=== PATIENT | female | born 1965 | race Hispanic/Latino ===

== ENCOUNTER 2016-11-23 15:15 | Inpatient (IN) | payer BC ==
--- NOTE | 2016-11-23 15:41 | C.PDOC ---
History Of Present Illness 51 y/o F presents with feelings of depression. Patient denies SI/HI or hallucinations. She states she is feeling sad and upset. at bedside states patient went to work today, but he thinks she is not fit to be at work currently, and he is adamant that she can not lose her job over this as it is illegal. She denies any somatic complaints. Denies fever, chest pain, or vomiting. Time Seen by Provider: 11/23/16 15:33 Chief Complaint (Nursing): Psychiatric Evaluation Past Medical History Vital Signs: Last Vital Signs Temp 98.9 F 11/23/16 20:43 Pulse 77 11/23/16 20:43 Resp 20 11/23/16 20:43 BP 148/74 11/23/16 20:43 Pulse Ox 98 11/23/16 20:43 - Medical History PMH: Back Problems, Bipolar Disorder, HTN, Hypercholesterolemia, Hyperthyroidism , Hypothyroidism Family History: States: Unknown Family Hx - Social History Hx Tobacco Use: No Hx Alcohol Use: No Hx Substance Use: No - Immunization History Hx Tetanus Toxoid Vaccination: Yes Hx Influenza Vaccination: Yes Hx Pneumococcal Vaccination: Yes Review Of Systems Except As Marked, All Systems Reviewed And Found Negative. Constitutional: Negative for: Fever Cardiovascular: Negative for: Chest Pain Physical Exam - Physical Exam Additional Physical Exam Comments: Constitutional: No acute distress. Head: Normocephalic. Atraumatic. Eyes: PERRL. EOMI. ENT: Moist mucous membranes. Neck: Supple. Cardiovascular: Regular rate. Radial pulses 2+ bilaterally. Chest: No tenderness. Respiratory: Clear to auscultation bilaterally. GI: Soft. Nontender. Nondistended. Back: No CVA tenderness. Musculoskeletal: No tenderness or swelling of extremities. Skin: No rash. Neurologic: Alert, no focal deficit. CN II-XII intact. Sensation to light touch intact bilaterally. Motor 5/5 x 4. FTN, HTS normal. Steady gait. ED Course And Treatment - Laboratory Results Result Diagrams: 11/23/16 16:12 11/23/16 16:01 O2 Sat by Pulse Oximetry: 98 Medical Decision Making Medical Decision Making: Medically clear for psychiatry. CXR no acute disease. EKG Sinus rhythm, narrow QRS, regular rate, no ST elevations. Dr. Eli consulted for psychiatry, concerned for elevated lithium level, recommends medical admission and he will consult on patient. Dr. Tao accepts admission to medical service. Disposition Discussed With : Roberto Eli Doctor Will See Patient In The: Hospital - Disposition Disposition: HOSPITALIZED Disposition Time: 18:30 Condition: FAIR - Clinical Impression Clinical Impression: [place] toxicity
[2016-11-23 16:07] LABS: BASO % 0.2 % (0.0-2.0); EOS # 0.1 K/uL (0.0-0.7); EOS % 0.6 % (0.0-4.0); HEMATOCRIT 41.7 % (34.0-47.0); LYMPH # 2.1 K/uL (1.0-4.3); LYMPH % 11.4 % (20.0-40.0); MEAN CORPUSCULAR HEMOGLOBIN 29.7 pg (27.0-31.0); MEAN PLATELET VOLUME 8.5 fL (7.2-11.7); MONO # 1.1 K/uL (0.0-0.8); MONO % 6.2 % (0.0-10.0); RED CELL DISTRIBUTION WIDTH 13.8 % (11.5-14.5)
[2016-11-23 16:13] LABS: MEAN CELL VOLUME 87.2 fL (81.0-99.0); WHITE BLOOD COUNT 18.1 K/uL (4.8-10.8)
[2016-11-23 16:19] LABS: CHLORIDE 100 mmol/L (98-107); RBC URINE 2 /hpf (0-3); URINE BACTERIA RARE (<OCC); URINE BILIRUBIN NEGATIVE (NEGATIVE); URINE BLOOD NEGATIVE (NEGATIVE); URINE COLOR Yellow (YELLOW); URINE GLUCOSE (UA) NORMAL (Normal); URINE KETONE NEGATIVE (NEGATIVE); URINE LEUKOCYTE ESTERASE NEG Leu/uL (Negative); URINE PROTEIN NEGATIVE (NEGATIVE); URINE UROBILINOGEN NORMAL mg/dL (0.2-1.0); WBC URINE 1 /hpf (0-5)
[2016-11-23 16:20] LABS: POTASSIUM 3.5 mmol/L (3.6-5.2); SODIUM 134 mmol/L (132-148)
[2016-11-23 16:22] LABS: ALB/GLOB RATIO 1.5 (1.0-2.1); ALKALINE PHOSPHATASE 50 U/L (38-126); ALT/SGPT 38 U/L (9-52); AST/SGOT 24 U/L (14-36); BILIRUBIN,TOTAL 0.6 mg/dL (0.2-1.3); BLOOD UREA NITROGEN 12 mg/dL (7-17); CARBON DIOXIDE 23 mmol/L (22-30); GFR AFRICAN-AMERICAN > 60; GLUCOSE,RANDOM 107 mg/dL (65-105); TOTAL PROTEIN 7.3 g/dL (6.3-8.3)
[2016-11-23 16:23] LABS: ALCOHOL SERUM < 10 mg/dl (0-10); CALCIUM 9.5 mg/dl (8.6-10.4)
--- NOTE | 2016-11-23 16:42 | RAD ---
HISTORY: Leukocytosis. COMPARISON: Comparison made with prior chest radiograph 03/27/2012 TECHNIQUE: Chest PA and lateral FINDINGS: LUNGS: No active pulmonary disease. PLEURA: No significant pleural effusion identified. No pneumothorax apparent. CARDIOVASCULAR: Normal. Heart appears upper limits of normal. OSSEOUS STRUCTURES: Mild multilevel degenerative spondylosis of the thoracic spine VISUALIZED UPPER ABDOMEN: Normal. OTHER FINDINGS: None. IMPRESSION: No active disease.
[2016-11-23] MEDS ORDERED: Sodium Chloride 0.9% 1,000 ML IV STA (18:19)
[2016-11-23] MEDS ORDERED: Potassium Chloride 20 mEq ER Tab PO ONE (21:43)
[2016-11-23] MEDS: Sodium Chloride 0.9% 1,000 ML IV SCH (21:45)
[2016-11-24] MEDS: Sodium Chloride 0.9% 1,000 ML IV SCH ×2 (06:01→17:20)
[2016-11-24 07:53] LABS: BASO # 0.1 K/uL (0.0-0.2); BASO % 0.4 % (0.0-2.0); EOS # 0.1 K/uL (0.0-0.7); EOS % 1.1 % (0.0-4.0); HEMATOCRIT 44.5 % (34.0-47.0); LYMPH # 1.5 K/uL (1.0-4.3); MEAN CELL VOLUME 88.4 fL (81.0-99.0); MEAN CORPUSCULAR HEMOGLOBIN 29.2 pg (27.0-31.0); MEAN CORPUSCULAR HGB CONC 33.1 g/dL (33.0-37.0); MEAN PLATELET VOLUME 9.1 fL (7.2-11.7); MONO # 0.7 K/uL (0.0-0.8); MONO % 5.7 % (0.0-10.0); RED CELL DISTRIBUTION WIDTH 13.9 % (11.5-14.5); WHITE BLOOD COUNT 12.5 K/uL (4.8-10.8)
[2016-11-24 07:57] LABS: CHLORIDE 105 mmol/L (98-107)
[2016-11-24 07:58] LABS: SODIUM 138 mmol/L (132-148)
[2016-11-24 08:00] LABS: ALB/GLOB RATIO 1.4 (1.0-2.1); CARBON DIOXIDE 22 mmol/L (22-30); CHOLESTEROL 137 mg/dL (0-199); GFR AFRICAN-AMERICAN > 60; TOTAL PROTEIN 7.7 g/dL (6.3-8.3)
[2016-11-24 08:01] LABS: ALKALINE PHOSPHATASE 59 U/L (38-126); AST/SGOT 21 U/L (14-36); BILIRUBIN,TOTAL 0.7 mg/dL (0.2-1.3); BLOOD UREA NITROGEN 7 mg/dL (7-17); GLUCOSE,RANDOM 91 mg/dL (65-105)
[2016-11-24 08:02] LABS: ALT/SGPT 35 U/L (9-52); CALCIUM 9.4 mg/dl (8.6-10.4)
[2016-11-24 08:32] LABS: THYROID STIMULATING HORMONE 1.82 mIU/L (0.46-4.68)
[2016-11-24] MEDS ORDERED: Pneumococcal 23-Valent Vaccine IM ONE (10:00)
--- NOTE | 2016-11-24 10:42 | CP.PCM.PN ---
Subjective - Date & Time of Evaluation Date of Evaluation: 11/24/16 Time of Evaluation: 10:20 - Subjective Subjective: Patient is seen and examined at bedside. #[id number] Objective - Vital Signs/Intake and Output Vital Signs (last 24 hours): Temp Pulse Resp BP Pulse Ox 98.2 F 68 20 147/84 99 11/24/16 08:16 11/24/16 08:16 11/24/16 08:16 11/24/16 08:16 11/24/16 08:16 Intake and Output: 11/24/16 11/24/16 06:59 18:59 Intake Total 1415 Balance 1415 - Medications Medications: Current Medications Sodium Chloride (Sodium Chloride 0.9%) 1,000 mls @ 100 mls/hr IV .Q10H BRAXTON Last Admin: 11/24/16 06:01 Dose: 100 mls/hr - Labs Labs: 11/24/16 07:41 11/24/16 07:41
--- NOTE | 2016-11-24 11:00 | PCM.PSYCH ---
Initial Psychiatric Evaluation - Initial Psychiatric Evaluation Type of Admission: Voluntary Legal Status: Capacity Chief Complaint (in patient's own words): "I am not well" History of Present Illness and Precipitating Events: The pt is seen, chart reviewed and case discussed She is a 51 y/o WF, with 2 children, aged 21 and 27 y/o. 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 Per records, her has alcohol problem and some relational problems, plus other issues and she felt more depressed and anxious lately. On top of that he rLi level came high, 1.2 and she was sent to ED. Recently she was sent home from work b/c she was "acting well" The pt indeed looks very perplexed, very anxious, has odd involuntary movements in left arm and leg, "no sleep", has manic and depressive sxs but denies SI. However, she is also vague about SI, but yet contracted for safety She was on [place] 450 mg two tabs twice a day (needs confirmation as her sons reported that she had been non-compliant in the past) She also used seroquel She is a poor historian in general Past psych hx: Several admissions "years ago" No sandeep attempt Family psych hx: Mo had bipolar d/o Medical hx: Denies but had thyroid problems (likely due to Li, but TSH is normal today) Current Medications: Active Medications Generic Name Dose Route Start Last Admin Trade Name Freq PRN Reason Stop Dose Admin Sodium Chloride 1,000 mls @ 100 mls/hr 11/23/16 20:45 11/24/16 06:01 Sodium Chloride 0.9% IV 100 mls/hr .Q10H B[place] Administration Past Psychiatric History - Past Psychiatric History Previous Treatment History: Inpatient Pertinent Medical Hx (Current Medical&Sleep Prob, Allergies): Allergies Allergy/AdvReac Type Severity Reaction Status Date / Time No Known Allergies Allergy Unverified 04/05/13 23:32 Cogentin PO BID 11/23/16 [place] Carbonate ER Tab [[place] Carbonate] 450 mg PO BID 11/23/16 SEROquel PO HS 11/23/16 Review of Systems - Psychiatric Psychiatric: Abnormal Sleep Pattern, Anhedonia, Anxiety, Behavioral Changes, Change in Appetite, Confusion, Depression, Difficulty Concentrating, Irritability, Memory Loss, Mood Swings, Panic Attacks, Paranoia, Suicidal Ideation (no plan or intention). absent: Hallucinations, Homicidal Ideation Mental Status Examination - Personal Presentation Personal Presentation: Looks older than stated age (oddly related, perplexed, unkempt) - Affect Affect: Constricted - Motor Activity Motor Activity: Other (anxious, fidgety, has involuntary movements) - Reliability in Providing Information Reliability in Providing Information: Fair - Speech Speech: Tangential - Mood Mood: Depressed, Anxious - Formal Thought Process Formal Thought Process: Loosening of associations - Cognitive Functions Orientation: Person, Place, Situation, Time Sensorium: Alert Attention/Concentration: Easily distracted Abstract Thinking: [place] Estimate of Intelligence: Average Judgement: Intact, as evidence by: Insight regarding need for hospitalization Memory: Recent intact, as evidence by: Ability to recall events of the day, Remote impaired as evidenced by: Inability to recall sig life events - Risk Risk: Diminished functioning - Strength & Assets Inventory Strength & Assets Inventory: Family support, Employment history, Cooperative - Limitations Limitations: Other DSM 5 DX - DSM 5 DSM 5 Diagnosis: Bipolar I disorder, mixed episode, severe - Recommended/Plan of Treatment Treatment Recommendations and Plan of Treatment: Hold [place] until collateral info from her outpt psychiatrist, Dr. Renteria and her Seroquel 100 mg HS ativan 0.5 mg tid for anxiety Inderal 10 mg tid for akathisia like bhv Neuro consult or referral if needed Attend groups and activities Individual therapy Psychoeducation and support Encourage compliance with meds and after care Refer to outpatient program Teach healthy lifestyle methods, i.e. diet, exercise, meditation 33 min Projected ELOS: 4-5 days with time off from work Prognosis: Good w treatment Discharge Plan and Discharge Criteria: No severe mood d/o sxs Refer back to outpt psych
--- NOTE | 2016-11-24 11:02 | CP.PCM.PCO ---
Physician Communication Note - Physician Communication Note Physician Communication Note: ED discussed the case with Dr. Fairbanks, not with the marketing writer.
--- NOTE | 2016-11-24 11:54 | CARD ---
APPROVED REPORT EKG Measurement Heart [id number] CT 162P50 [id number] <Conclusion> Normal sinus rhythm Incomplete right bundle branch block Nonspecific ST abnormality Abnormal ECG
--- NOTE | 2016-11-24 14:55 | HP ---
CHIEF COMPLAINT: The patient was sent from psychiatrist office for worsening symptoms of anxiety and depression. HISTORY OF PRESENT ILLNESS: The patient is a 51-year-old female with past medical history of hyperlipidemia, bipolar disorder, who had been following up with the psychiatrist. The psychiatrist suggested her lithium. I increased from 450 mg once a day to 450 mg twice a day last Sunday and yesterday, her lithium level was at 1.2, and the patient was referred to ED for further evaluation and management. The patient is being admitted to medical floor for high normal lithium level of 1.2 and slightly elevated WBC count. When I examined the patient, she denies any headache, dizziness. Denies any chest pain, shortness of breath, or wheezing. Denies any nausea, vomiting, abdominal pain, diarrhea, or constipation. Denies any urinary complaints. Denies any leg pains or leg cramps. Denies any other neurologic symptoms, but complaining of feeling anxious, requesting for some medication. Denies any suicidal or homicidal ideation. Denies any hallucinations. PAST MEDICAL HISTORY: As described; hyperlipidemia, bipolar disorder. PAST SURGICAL HISTORY: Tubal ligation, 22 years ago. FAMILY HISTORY: Father from lung CA. Mother from sepsis. PERSONAL HISTORY: She is , living with her , having 3 children. 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. SOCIAL HISTORY: Denies smoking, alcohol, or drug abuse. ALLERGIES: NO KNOWN DRUG ALLERGIES. MEDICATIONS: Include lithium 450 mg p.o. b.i.d., Seroquel, Cogentin, and Lipitor. REVIEW OF SYSTEMS: As described in history of present illness. All other systems reviewed and were found to be negative. PHYSICAL EXAMINATION: GENERAL: Middle-aged female, lying in bed, in no acute distress. VITAL SIGNS: Blood pressure 147/84, pulse 68, respirations 20, temperature 98.2 degree Fahrenheit, O2 sats 99% on room air. HEENT: Pupils are equal, round and reacting to light and accommodation. Extraocular muscles intact. No icterus. No pallor. No oral thrush. No pharyngeal congestion. No nasal congestion. NECK: Supple. No JVD. No thyromegaly. CHEST: Moving equally bilaterally on respiration. LUNGS: Bilateral vesicular breath sounds. No wheezing. No rhonchi. CARDIOVASCULAR: S1 and S2 present, regular. ABDOMEN: Soft and nontender. Bowel sounds are present. No guarding. No rigidity. No rebound tenderness noted. CENTRAL NERVOUS SYSTEM: Alert, awake, and oriented x3. No focal deficits noted. EXTREMITIES: No edema. Palpable peripheral pulses. LABORATORY DATA: Labs done from ED: WBC 18.1, hemoglobin 14.2, hematocrit 41.7, platelets 295. Sodium 134, potassium 3.5, chloride 100, bicarb 23, BUN 12, creatinine 0.7, glucose 107, calcium 9.5, total bilirubin 0.6, AST 24, ALT 38, alkaline phosphatase 50, total protein 7.3, albumin 4.4. UA negative. Urine drug screen negative. [place] level 1.2. Alcohol less than 10. Chest x-ray, negative for any infiltrate. EKG from 11/23 shows normal sinus rhythm at 87 beats per minute and complete right bundle branch block. ASSESSMENT: A middle-aged female with history of hyperlipidemia, bipolar disorder, on multiple medications for a long time with worsening symptoms recently, and her lithium dosage being adjusted from 450 mg once a day to twice a day with slightly increased lithium level in upper limit as normal with the patient's worsening symptoms of depression and anxiety. The patient is being admitted for further management. Because of the high normal lithium level, the patient is being admitted to medical floor. 1. High normal lithium level, probably secondary to sudden increase in her dose. 2. Leukocytosis, questionable etiology. No evidence of sepsis or source of infection. 3. Hyperlipidemia. 4. History of bipolar disorder with worsening symptoms. PLAN: The patient is being admitted to the floor. We will monitor lithium level. We will repeat lithium level in the morning, but the patient is on one-to-one observation, Psychiatric evaluation, hold lithium for now. Other psychiatric medications as per Psychiatry. Check lipid level. Check TSH level. Monitor blood pressure. Repeat EKG. If lithium level comes back to within the normal range, the patient may be medically cleared and may be transferred to psych floor if the patient agrees. We will follow up with Psychiatry. Jean-Paul Tao MD
[2016-11-24] MEDS ORDERED: Potassium Chloride 20 mEq ER Tab PO ONE (20:41)
[2016-11-24] MEDS ORDERED: Lithium Carbonate ER Tab 450 MG PO SCH (22:00)
--- NOTE | 2016-11-25 14:13 | CARD ---
APPROVED REPORT EKG Measurement Heart [id number] NE 166P62 [id number] <Conclusion> Normal sinus rhythm with sinus arrhythmia Incomplete right bundle branch block Borderline ECG
--- NOTE | 2016-11-25 18:51 | PCM.PYCHPN ---
Psychiatric Progress Note - Psychiatric Progress Note Patient seen today, length of contact: 15 minutes Patient Chief Complaint: I need to start on lithium Problems Identified/Issues Discussed: Patient was seen. Chart was reviewed important content noted. Nurse input received. Patient was preoccupied with the starting of [place]. She stated she was admitted in hospital for Li toxicity. has no new complaints. Currently she slept well and is eating well. Patient reported depressed mood and tiredness, low appetite. Denies suicidal or homicidal ideation. Patient does not report hallucinations. No delusions elicited. No paranoia elicited. Patient has remained in good clinical and behavioral control. . Diagnostic Results: No new labs DSM 5 Symptoms Update: Bipolar disorder Medication Change: No Medical Record Reviewed: Yes Mental Status Examination - Cognitive Function Orientation: Person, Place, Situation, Time Memory: Intact Attention: WNL Concentration: WNL Association: WNL Fund of Knowledge: WN Decription of patient's judgement and insights: Limited/limited Addtional comments: She appeared restless, changing her position multiple times, and smiling inappropriately - Mood Mood: Depressed, Anxious - Affect Affect: Constricted - Speech Speech: Appropriate - Formal Thought Process Formal Thought Process: Loosening of associations - Suicidal Ideation Suicidal Ideation: No - Homicidal Ideation Homicidal Ideation: No Goal/Treatment Plan - Goal/Treatment Plan Need for Continued Stay: Remain at risks for inpatient hospitalization, Discharge may exacerbated symptoms Progress Toward Problem(s) and Goals/Treatment Plan: Hold [place] until collateral info from her outpt psychiatrist, Dr. Renteria and her Seroquel 200 mg HS ativan 0.5 mg tid for anxiety Inderal 10 mg tid for akathisia/ restlessness Recommend to attend groups and activities Individual therapy Psychoeducation and support Encourage compliance with meds and after care Refer to outpatient program Teach healthy lifestyle methods, i.e. diet, exercise, meditation Estimated Date of D/C: 11/29/16 - Smoking Cessation Smoking Cessation Initiated: Yes
--- NOTE | 2016-11-25 19:05 | PCM.BM ---
<Margaret Mcdonald - Last Filed: 11/25/16 19:03> Treatment Plan Problems - Problems identified on initial assessmt Depression Date Initiated: 11/24/16 Time Initiated: 13:35 Assessment reference: NA Status: Active Treatment assets and liabiliti Patient Assests: ADL independent, physically healthy Patient Liabilities: relationship conflicts, medical problems - Milieu Protocol Maintain good personal hygiene: daily Encourage regular showers, daily Remind patient to perform daily oral care, every shift Assist patient to perform ADL's Conduct patient checks and document Observation sheet: Q15 minutes Maintain personal safety: every shift Educate patient to report safety concerns to staff, every shift Monitor environment for contraband/sharps Medication safety: Monitor for expected outcome, potential side effects: every shift, Assess barriers to learning: every shift, Assess readiness for medication education: every shift Milieu Narrative: Hold [place] until collateral info from her outpt psychiatrist, Dr. Renteria and her Seroquel 200 mg HS ativan 0.5 mg tid for anxiety Inderal 10 mg tid for akathisia/ restlessness Recommend to attend groups and activities Individual therapy Psychoeducation and support Encourage compliance with meds and after care Refer to outpatient program Teach healthy lifestyle methods, i.e. diet, exercise, meditation Discharge/Continuing Care - Treatment Team Participation Patient/Family/SO Statement: Hold [place] until collateral info from her outpt psychiatrist, Dr. Renteria and her Seroquel 200 mg HS ativan 0.5 mg tid for anxiety Inderal 10 mg tid for akathisia/ restlessness Recommend to attend groups and activities Individual therapy Psychoeducation and support Encourage compliance with meds and after care Refer to outpatient program Teach healthy lifestyle methods, i.e. diet, exercise, meditation <Roberto Eli - Last Filed: 11/26/16 18:42> - Diagnosis (1) Bipolar 1 disorder Status: Acute Interventions: 11/26/16 18:42 * Assess/adjust medications daily and /or as needed * See patient on an individual basis 7x/week to assess level of manic behaviors and stability * Discuss risks, benefits, side effects and alternatives of medications * <Nissa Garcia - Last Filed: 11/27/16 10:33> Family Contact Family involvement: Famliy/SO not involved - Goals for Treatment Patient goals for treatment: "I want to go home." Discharge/Continuing Care - Education Needs Education Needs: Patient Medication, Patient Coping Skills - Discharge Discharge Criteria: Tolerates medication w/o severe side effects, Reduction of target symptoms Discharge to:: Home - Treatment Team Participation Discussed with Family/SO: No Was Patient/Family/SO present at Treatment Team Meeting: Yes
--- NOTE | 2016-11-26 17:31 | PCM.PYCHPN ---
Psychiatric Progress Note - Psychiatric Progress Note Patient seen today, length of contact: 15 minutes Patient Chief Complaint: I have problem in focusing Problems Identified/Issues Discussed: Patient was seen. Chart was reviewed important content noted. Nurse input received. Patient was preoccupied with the starting of [place]. She stated she was admitted in hospital for Li toxicity. She stated that she has difficulty in focusing, and depressed mood. Currently she slept well and is eating well. Patient reported depressed mood and tiredness, low appetite. Denies suicidal or homicidal ideation. Patient does not report hallucinations. No delusions elicited. No paranoia elicited. Patient has remained in good clinical and behavioral control. . Diagnostic Results: No new labs Medication Change: No (Increase Seroquel 300 mg po HS) Medical Record Reviewed: Yes Mental Status Examination - Cognitive Function Orientation: Person, Place, Situation, Time Memory: Intact Attention: WNL Concentration: WNL Association: WNL Fund of Knowledge: [facility] Decription of patient's judgement and insights: Limited/limited - Mood Mood: Depressed, Anxious - Affect Affect: Constricted - Speech Speech: Appropriate - Formal Thought Process Formal Thought Process: Loosening of associations Psychotic Thoughts and Behaviors: denied - Suicidal Ideation Suicidal Ideation: No - Homicidal Ideation Homicidal Ideation: No Goal/Treatment Plan - Goal/Treatment Plan Need for Continued Stay: Remain at risks for inpatient hospitalization, Discharge may exacerbated symptoms Progress Toward Problem(s) and Goals/Treatment Plan: Hold [place] until collateral info from her outpt psychiatrist, Dr. Renteria and her Increase Seroquel 300 mg HS ativan 0.5 mg tid for anxiety Inderal 10 mg tid for akathisia/ restlessness Recommend to attend groups and activities Individual therapy Psychoeducation and support Encourage compliance with meds and after care Refer to outpatient program Teach healthy lifestyle methods, i.e. diet, exercise, meditation Estimated Date of D/C: 11/29/16
[2016-11-27 08:06] VITALS: O2SAT 99
[2016-11-27] MEDS: Lithium Carbonate 150 MG CAP PO SCH ×2 (13:19→17:01)
--- NOTE | 2016-11-27 13:40 | PCM.PYCHPN ---
Psychiatric Progress Note - Psychiatric Progress Note Patient seen today, length of contact: 17 min Patient Chief Complaint: "I want to leave" Problems Identified/Issues Discussed: The pt is seen, chart reviewed and case discussed Today, she is only better than Sunday, otherwise she is still somewhat manicky, oddly related and anxious, but has minimal limp movements. She insisted that we start [place] again b/c "I had used it all my life... I can 't be without it...Please" She is informed about the risks, incl. the fact that we will not be able to check the levels, but she said she has an appointment with her psychiatrist on 12/04 She will do the labs and follow up with him (Dr. Renteria) and technical writer and editor will call him to discuss. However, she denied consent to us to talk to her , even to get information from him. She said "he has his issues" She denies SI, HI and no AVH/del elicited. Sleeps better with seroquel She is demanding for d/c despite risks tomorrow the latest. Medication Change: Yes (add lithium 900 mg/d) Medical Record Reviewed: Yes Mental Status Examination - Cognitive Function Orientation: Person, Place, Situation, Time Memory: Intact Attention: WNL Concentration: Poor Association: WNL Fund of Knowledge: WNL - Mood Mood: Depressed, Anxious - Affect Affect: Constricted - Speech Speech: Appropriate - Formal Thought Process Formal Thought Process: Loosening of associations (better) - Suicidal Ideation Suicidal Ideation: No - Homicidal Ideation Homicidal Ideation: No Goal/Treatment Plan - Goal/Treatment Plan Need for Continued Stay: Remain at risks for inpatient hospitalization, Discharge may exacerbated symptoms Progress Toward Problem(s) and Goals/Treatment Plan: Start [place] and level to be followed by Dr. Renteria Seroquel 300 mg HS ativan 0.5 mg tid for anxiety Inderal 10 mg tid for akathisia like bhv Neuro consult or referral if needed Attend groups and activities Individual therapy Psychoeducation and support Encourage compliance with meds and after care Refer to outpatient program Teach healthy lifestyle methods, i.e. diet, exercise, meditation Estimated Date of D/C: 11/28/16 If changed, why: per her request
[2016-11-27 15:31] VITALS: PULSE 98
[2016-11-28 07:25] VITALS: BP 129/75; RESP 20; TEMP 98
--- NOTE | 2016-11-28 09:41 | PCM.PYCHDC ---
Mental Status Examination - Mental Status Examination Orientation: Person Discharge Summary - Discharge Note Consultations:: List each consultation separately and include: 1. Reason for request. 2. Findings. 3. Follow-up Summary of Hospital Course include:: 1. Description of specific treatment plan utilized for patients during their course of treatmen. 2. Summarize the time- course for resolution of acute symptoms and/or regressed behaviors. 3. Describe issues identified and worked on during hospitalization. 4. Describe medication utilized. 5. Describe medical problems identified and treated. 6. Reassessment of suicide risk Summary of Hospital Course: The pt is seen, chart reviewed and case discussed She is a 51 y/o WF, with 2 children, aged 21 and 27 y/o. 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 Per records, her has alcohol problem and some relational problems, plus other issues and she felt more depressed and anxious lately. On top of that he rLi level came high, 1.2 and she was sent to ED. Recently she was sent home from work b/c she was "acting well" The pt indeed looks very perplexed, very anxious, has odd involuntary movements in left arm and leg, "no sleep", has manic and depressive sxs but denies SI. However, she is also vague about SI, but yet contracted for safety She was on [place] 450 mg two tabs twice a day (needs confirmation as her sons reported that she had been non-compliant in the past) She also used seroquel She is a poor historian in general Past psych hx: Several admissions "years ago" No sandeep attempt Family psych hx: Mo had bipolar d/o Medical hx: Denies but had thyroid problems (likely due to Li, but TSH is normal today) - Diagnosis (1) Bipolar 1 disorder Current Visit: Yes Status: Acute - Final Diagnosis (DSM 5) Condition upon Discharge: FAIR Disposition: HOME/ ROUTINE Follow-up Treatment Plan: Start [place] and level to be followed by Dr. Renteria Seroquel 300 mg HS ativan 0.5 mg tid for anxiety Inderal 10 mg tid for akathisia like bhv Neuro consult or referral if needed Attend groups and activities Individual therapy Psychoeducation and support Encourage compliance with meds and after care Refer to outpatient program Teach healthy lifestyle methods, i.e. diet, exercise, meditation Prescriptions/Medication Reconciliation: Benztropine [Cogentin] 1 mg PO BID #60 tab [place] Carbonate [[place] Carbonate 150MG] 450 mg PO BID #60 cap QUEtiapine [Seroquel] 300 mg PO HS #30 tab
[2016-11-28] MEDS: Lithium Carbonate 150 MG CAP PO SCH (09:46)
== END 2016-11-28 11:12 | disposition home or self-care (01) | DRG 885 ==
LOC: C.ER 15:15 → C.9E 19:00 → C.3T 19:52 → C.5E 11-24 11:02 → OBSVTOIN 11-24 11:02 → C.5E 11-25 15:50
PROVIDERS: ADMIT Psychiatry & Neurology Psychiatry; ATTEND Psychiatry & Neurology Psychiatry
PROC: GZ3ZZZZ Medication Management (ICD-10-PCS; principal; 2016-11-24)
PROC: GZHZZZZ Group Psychotherapy (ICD-10-PCS; 2016-11-24)
PROC: GZ56ZZZ Individual Psychotherapy, Supportive (ICD-10-PCS; 2016-11-24)
DX: F31.63 Bipolar disorder, current episode mixed, severe, without psychotic features (principal); F41.9 Anxiety disorder, unspecified; Z91.19 Patient's noncompliance with other medical treatment and regimen; I10 Essential (primary) hypertension; E03.9 Hypothyroidism, unspecified; D72.829 Elevated white blood cell count, unspecified; E78.00 Pure hypercholesterolemia, unspecified; E78.5 Hyperlipidemia, unspecified; Z79.899 Other long term (current) drug therapy; Z80.1 Family history of malignant neoplasm of trachea, bronchus and lung

== ENCOUNTER 2017-03-24 14:02 | Emergency (ER) | payer BC ==
[2017-03-24 14:09] VITALS: BP 113/82; PULSE 85; RESP 16; TEMP 97.9; O2SAT 98
--- NOTE | 2017-03-24 15:31 | C.PDOC ---
History Of Present Illness 51 y/o F p/w urinary abnormality x weeks. Patient states she is urinating often , feels as though she is not emptying bladder completely, sometimes a smaller amount, and sometimes larger. Denies any dysuria. Denies fever, chills, flank pain. She went to PMD earlier and finished a course of antibiotics, does not know results of urine test and states symptoms persist. Denies any visible prolapse. She also notes she has had cough and congestion for 3 days and now began having R ear pain. Denies stiff neck. Time Seen by Provider: 03/24/17 14:34 Chief Complaint (Nursing): ENT Problem Past Medical History Vital Signs: Last Vital Signs Temp 97.9 F 03/24/17 14:06 Pulse 85 03/24/17 14:06 Resp 16 03/24/17 14:06 BP 113/82 03/24/17 14:06 Pulse Ox 98 03/24/17 15:32 - Medical History PMH: Back Problems, Bipolar Disorder, Depression, HTN, Hypercholesterolemia, Hyperthyroidism, Hypothyroidism Denies: Diabetes, Hepatitis, HIV, Seizures, Sexually Transmitted Disease - [facility] Procedures GROUP PSYCHOTHERAPY (11/24/16) INDIVIDUAL PSYCHOTHERAPY, SUPPORTIVE (11/24/16) MEDICATION MANAGEMENT (11/24/16) Family History: States: Unknown Family Hx - Social History Hx Tobacco Use: No Hx Alcohol Use: No Hx Substance Use: No - Immunization History Hx Tetanus Toxoid Vaccination: Yes Hx Influenza Vaccination: Yes Hx Pneumococcal Vaccination: Yes Review Of Systems Except As Marked, All Systems Reviewed And Found Negative. Constitutional: Negative for: Fever Respiratory: Negative for: Shortness of Breath Physical Exam - Physical Exam Additional Physical Exam Comments: Gen: NAD Head: NC/AT Eyes: No scleral icterus ENT: R TM erythematous. Neck: Supple CV: Regular rate Lungs: No accessory muscle use Extr: No swelling Neuro: Alert, no focal deficit ED Course And Treatment - Laboratory Results Result Diagrams: 03/24/17 15:29 03/24/17 15:29 O2 Sat by Pulse Oximetry: 98 Medical Decision Making Medical Decision Making: Check UA to exclude UTI, suspect requires f/u with OBGYN for further evaluation and treatment. Will treat otitis media with antibiotics. Disposition - Disposition Disposition: HOME/ ROUTINE Disposition Time: 16:08 Condition: STABLE Prescriptions: Amoxicillin 875 mg PO BID #20 tablet Ibuprofen [Motrin] 1 tab PO Q6 #30 tab Instructions: Ear Infections (Otitis Media) Forms: [employer] (Algerian) - Clinical Impression Clinical Impression: Otitis media, Urinary anomaly
[2017-03-24 15:36] LABS: SQUAMOUS EPITHIAL 1 /hpf (0-5); URINE BILIRUBIN NEGATIVE (NEGATIVE); URINE BLOOD NEGATIVE (NEGATIVE); URINE CLARITY Clear (Clear); URINE COLOR Straw (YELLOW); URINE GLUCOSE (UA) NORMAL (Normal); URINE LEUKOCYTE ESTERASE NEG Leu/uL (Negative); URINE NITRATE NEGATIVE (NEGATIVE); URINE PROTEIN NEGATIVE (NEGATIVE); URINE UROBILINOGEN NORMAL mg/dL (0.2-1.0)
[2017-03-24 15:38] LABS: BASO # 0.1 K/uL (0.0-0.2); BASO % 0.9 % (0.0-2.0); EOS # 0.2 K/uL (0.0-0.7); LYMPH # 2.6 K/uL (1.0-4.3); LYMPH % 37.8 % (20.0-40.0); MEAN CELL VOLUME 86.6 fL (81.0-99.0); MEAN CORPUSCULAR HEMOGLOBIN 28.6 pg (27.0-31.0); MEAN PLATELET VOLUME 8.9 fL (7.2-11.7); MONO # 0.5 K/uL (0.0-0.8); MONO % 7.4 % (0.0-10.0); NEUT # 3.6 K/uL (1.8-7.0); NEUT % 50.9 % (50.0-75.0); RBC 4.91 Mil/uL (3.80-5.20); RED CELL DISTRIBUTION WIDTH 12.9 % (11.5-14.5)
[2017-03-24 15:44] LABS: HCG,QUALITATIVE URINE NEGATIVE (NEGATIVE)
[2017-03-24 15:57] LABS: ALB/GLOB RATIO 1.5 (1.0-2.1); ALBUMIN 4.1 g/dL (3.5-5.0); ALT/SGPT 20 U/L (9-52); AST/SGOT 27 U/L (14-36); BLOOD UREA NITROGEN 11 mg/dL (7-17); CALCIUM 9.2 mg/dl (8.6-10.4); GFR AFRICAN-AMERICAN > 60; GFR NON-AFRICAN AMERICAN > 60
== END 2017-03-24 16:33 | disposition home or self-care (01) ==
LOC: C.ER 14:02
DX: H66.91 Otitis media, unspecified, right ear (principal); R39.198 Other difficulties with micturition; I10 Essential (primary) hypertension; E78.00 Pure hypercholesterolemia, unspecified

== ENCOUNTER → 2017-03-28 18:54 | Emergency (ER) | payer BC | END | disposition left against medical advice (07) | LOC: C.ER 18:54 | DX: Z02.89 Encounter for other administrative examinations (principal); R10.2 Pelvic and perineal pain ==

== ENCOUNTER 2017-09-13 07:59 | Emergency (ER) | payer BC ==
[2017-09-13 08:04] VITALS: BMI 25.0
[2017-09-13] MEDS ORDERED: Sodium Chloride 0.9% 1,000 ML IV ONE (08:22)
[2017-09-13] MEDS ORDERED: Sodium Chloride 0.9% 1,000 ML ONE (08:33)
[2017-09-13 08:38] LABS: BASO # 0.1 K/uL (0.0-0.2); BASO % 0.8 % (0.0-2.0); EOS # 0.2 K/uL (0.0-0.7); EOS % 2.2 % (0.0-4.0); HEMOGLOBIN 14.3 g/dL (11.0-16.0); LYMPH # 1.2 K/uL (1.0-4.3); LYMPH % 13.6 % (20.0-40.0); MEAN CELL VOLUME 85.2 fL (81.0-99.0); MEAN CORPUSCULAR HEMOGLOBIN 28.8 pg (27.0-31.0); MEAN CORPUSCULAR HGB CONC 33.8 g/dL (33.0-37.0); MEAN PLATELET VOLUME 8.9 fL (7.2-11.7); MONO # 0.6 K/uL (0.0-0.8); MONO % 6.4 % (0.0-10.0); NEUT # 6.7 K/uL (1.8-7.0); RBC 4.96 Mil/uL (3.80-5.20); RED CELL DISTRIBUTION WIDTH 13.1 % (11.5-14.5); WHITE BLOOD COUNT 8.7 K/uL (4.8-10.8)
[2017-09-13 08:47] LABS: ALB/GLOB RATIO 1.5 (1.0-2.1); ALBUMIN 4.5 g/dL (3.5-5.0); ALT/SGPT 30 U/L (9-52); AST/SGOT 27 U/L (14-36); BLOOD UREA NITROGEN 8 mg/dL (7-17); CALCIUM 9.1 mg/dl (8.6-10.4); GFR AFRICAN-AMERICAN > 60; GFR NON-AFRICAN AMERICAN > 60
--- NOTE | 2017-09-13 09:49 | CT ---
Date of service: 09/13/2017 PROCEDURE: CT HEAD WITHOUT CONTRAST. HISTORY: Headache. COMPARISON: None available. TECHNIQUE: Axial computed tomography images were obtained through the head/brain without intravenous contrast. Radiation dose: Total exam DLP = 969 MGy-cm. This CT exam was performed using one or more of the following dose reduction techniques: Automated exposure control, adjustment of the mA and/or kV according to patient size, and/or use of iterative reconstruction technique. FINDINGS: HEMORRHAGE: No intracranial hemorrhage. BRAIN: No mass effect or edema. No atrophy or chronic microvascular ischemic changes. VENTRICLES: Unremarkable. No hydrocephalus. CALVARIUM: Unremarkable. PARANASAL SINUSES: Unremarkable as visualized. No significant inflammatory changes. MASTOID AIR CELLS: Unremarkable as visualized. No inflammatory changes. OTHER FINDINGS: None. IMPRESSION: No acute intracranial abnormality. If symptoms persist, consider correlation with MRI.
[2017-09-13 10:47] VITALS: BP 146/85; PULSE 80; RESP 20; TEMP 98.5; O2SAT 100
--- NOTE | 2017-09-13 11:06 | C.PDOC ---
History Of Present Illness 52 y/o female, with a Hx of migraines, presents to the ER c/o a left sided headache that began about seven hours ago. 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 The patient also has photophobia but denies any fever, extremity weakness or blurred vision. She denies taking any medication for the headache at home. Time Seen by Provider: 09/13/17 08:27 Chief Complaint (Nursing): Headache History Per: Patient History/Exam Limitations: no limitations Onset/Duration Of Symptoms: Hrs Current Symptoms Are (Timing): Still Present Associated Symptoms: Photophobia, Vomiting Recent travel outside of the [place]: No Past Medical History Reviewed: Historical Data, Nursing Documentation, Vital Signs Vital Signs: Last Vital Signs Temp 98.5 F 09/13/17 09:50 Pulse 80 09/13/17 09:50 Resp 20 09/13/17 09:50 BP 146/85 09/13/17 09:50 Pulse Ox 100 09/13/17 11:22 - Medical History PMH: Back Problems, Bipolar Disorder, Depression, HTN, Hypercholesterolemia, Hyperthyroidism, Hypothyroidism Denies: Diabetes, Hepatitis, HIV, Seizures, Sexually Transmitted Disease Other Surgeries: b/l tubal ligation - [facility] Procedures GROUP PSYCHOTHERAPY (11/24/16) INDIVIDUAL PSYCHOTHERAPY, SUPPORTIVE (11/24/16) MEDICATION MANAGEMENT (11/24/16) Family History: States: Unknown Family Hx - Social History Hx Tobacco Use: No Hx Alcohol Use: No Hx Substance Use: No - Immunization History Hx Tetanus Toxoid Vaccination: Yes Hx Influenza Vaccination: Yes Hx Pneumococcal Vaccination: Yes Review Of Systems Except As Marked, All Systems Reviewed And Found Negative. Constitutional: Negative for: Fever Eyes: Positive for: Other (photophobia) Gastrointestinal: Positive for: Nausea, Vomiting Neurological: Positive for: Headache (left-sided). Negative for: Weakness Physical Exam - Physical Exam Appears: Well, Non-toxic Skin: Warm, No Rash Head: Atraumatic, Normacephalic Eye(s): bilateral: PERRL, EOMI Ear(s): Bilateral: Normal Oral Mucosa: Moist Throat: Normal Neck: Normal ROM Chest: Symmetrical Cardiovascular: Rhythm Regular, No Murmur Respiratory: Normal Breath Sounds, No Rales, No Rhonchi, No Wheezing Gastrointestinal/Abdominal: Bowel Sounds, Soft, No Tenderness Extremity: Normal ROM Extremity: Bilateral: Atraumatic Pulses: Left Radial: Normal, Right Radial: Normal Neurological/Psych: Oriented x3 Gait: Steady ED Course And Treatment - Laboratory Results Result Diagrams: 09/13/17 08:31 0818 08:31 O2 Sat by Pulse Oximetry: 100 (RA) Pulse Ox Interpretation: Normal - CT Scan/US Head Other Rad Studies (CT/US): Read By Radiologist, Radiology Report Reviewed CT/US Interpretation: FINDINGS: HEMORRHAGE: No intracranial hemorrhage. BRAIN : No mass effect or edema. No atrophy or chronic microvascular ischemic changes. VENTRICLES: Unremarkable. No hydrocephalus. CALVARIUM: Unremarkable. PARANASAL SINUSES: Unremarkable as visualized. No significant inflammatory changes. MASTOID AIR CELLS: Unremarkable as visualized. No inflammatory changes. OTHER FINDINGS: None. IMPRESSION: No acute intracranial abnormality. If symptoms persist, consider correlation with MRI. Medical Decision Making Medical Decision Making: Impression: 52 y/o female with left sided headache and a hx of migraines Plan: --Head CT --CMP --CBC --Reglan 10 mg IV -- IV Fluids On reeval, patient felt better and was advised to follow up with primary doctor. Disposition - Disposition Referrals: [facility] Feli Quintero, [Non-Staff] - Disposition: HOME/ ROUTINE Disposition Time: 09:50 Condition: IMPROVED Additional Instructions: DAWN JIMÉNEZ, thank you for letting us take care of you today. Your provider was Maxime Ramos DO and you were treated for HEADACHE. The emergency medical care you received today was directed at your acute symptoms. If you were prescribed any medication, please fill it and take as directed. It may take several days for your symptoms to resolve. Return to the Emergency Department if your symptoms worsen, do not improve, or if you have any other problems. Please contact your doctor or call one of the physicians/clinics you have been referred to that are listed on the Patient Visit Information form that is included in your discharge packet. Bring any paperwork you were given at discharge with you along with any medications you are taking to your follow up visit. Our treatment cannot replace ongoing medical care by a primary care provider outside of the emergency department. Thank you for allowing the [email or web address] team to be part of your care today. Follow up with your primary care doctor in 2-3 days for re-evaluation and further management. Instructions: Migraine Headache (DC) Forms: [facility] [employer] (Cook Islander) - Clinical Impression Clinical Impression: Migraine - PA / MACHINE HAND / Resident Statement MD/DO has reviewed & agrees with the documentation as recorded. - Scribe Statement The provider has reviewed the documentation as recorded by the Scribe (Yumiko Cote) Provider Attestation: All medical record entries made by the Scribe were at my direction and personally dictated by me. I have reviewed the chart and agree that the record accurately reflects my personal performance of the history, physical exam, medical decision making, and the department course for this patient. I have also personally directed, reviewed, and agree with the discharge instructions and disposition.
== END 2017-09-13 10:46 | disposition home or self-care (01) ==
LOC: C.ER 07:59
DX: G43.909 Migraine, unspecified, not intractable, without status migrainosus (principal); E78.00 Pure hypercholesterolemia, unspecified; I10 Essential (primary) hypertension
CPT/HCPCS: 70450; 80053; 85025; 96361; 96374; 99285; J2765; J7030

== ENCOUNTER 2018-05-25 14:00 | Emergency (ER) | payer BC ==
[2018-05-25 14:00] VITALS: BMI 25.0
[2018-05-25 14:15] VITALS: O2SAT 98
--- NOTE | 2018-05-25 14:34 | C.PDOC ---
History Of Present Illness 52 year old female presents to the emergency department with complaints of palpitations on and off for the last week. Patient denies chest pain, shortness of breath. Patient states that she has a history of anxiety and has had family problems recently. Time Seen by Provider: 05/25/18 14:11 Chief Complaint (Nursing): Palpitations History Per: Patient History/Exam Limitations: no limitations Onset/Duration Of Symptoms: Intermittent Episodes, Other (1 week) Current Symptoms Are (Timing): Still Present Associated Symptoms: denies: Dyspnea, Other (chest pain) Past Medical History Reviewed: Historical Data, Nursing Documentation, Vital Signs Vital Signs: Last Vital Signs Temp 98.2 F 05/25/18 14:06 Pulse 90 05/25/18 14:06 Resp 18 05/25/18 14:06 BP 136/87 05/25/18 14:06 Pulse Ox 98 05/25/18 14:06 - Medical History PMH: Anxiety, Back Problems, Bipolar Disorder, Depression, HTN, Hypercholester olemia, Hyperthyroidism, Hypothyroidism Denies: Diabetes, Hepatitis, HIV, Seizures, Sexually Transmitted Disease Surgical History: No Surg Hx - [facility] Procedures GROUP PSYCHOTHERAPY (11/24/16) INDIVIDUAL PSYCHOTHERAPY, SUPPORTIVE (11/24/16) MEDICATION MANAGEMENT (11/24/16) Family History: States: No Known Family Hx - Social History Hx Tobacco Use: No Hx Alcohol Use: No Hx Substance Use: No - Immunization History Hx Tetanus Toxoid Vaccination: Yes Hx Influenza Vaccination: Yes Hx Pneumococcal Vaccination: Yes Review Of Systems Except As Marked, All Systems Reviewed And Found Negative. Constitutional: Negative for: Fever, Chills Cardiovascular: Positive for: Palpitations. Negative for: Chest Pain Respiratory: Negative for: Shortness of Breath Physical Exam - Physical Exam Appears: Non-toxic, No Acute Distress Skin: Normal Color, Warm, Dry Head: Atraumatic, Normacephalic Eye(s): bilateral: Normal Inspection, PERRL, EOMI Nose: Normal Neck: Normal, Supple Chest: Symmetrical, No Tenderness Cardiovascular: Rhythm Regular, No Murmur Respiratory: Normal Breath Sounds, No Rales, No Rhonchi, No Wheezing Gastrointestinal/Abdominal: Soft, No Tenderness, No Guarding, No Rebound Extremity: Normal ROM Neurological/Psych: Oriented x3, Normal Speech, Normal Cognition ED Course And Treatment - Laboratory Results Result Diagrams: 05/25/18 14:43 04/20/19 14:43 ECG: Interpreted By Me, Viewed By Me Interpretation Of ECG: Normal sinus rhythm at 87bpm, Q waves, no ST elevation. O2 Sat by Pulse Oximetry: 98 (RA) Pulse Ox Interpretation: Normal Medical Decision Making Medical Decision Making: Plan: CMP Magnesium Troponin CBC Urinalysis Disposition Counseled Patient/Family Regarding: Studies Performed, Diagnosis, Need For Followup - Disposition Referrals: Dayan Lr MD [Staff Provider] - Disposition: HOME/ ROUTINE Disposition Time: 15:45 Condition: STABLE Instructions: Palpitations Forms: [facility] (Qatari), Work Excuse - POA Present On Arrival: None - Clinical Impression Clinical Impression: Palpitations - Scribe Statement The provider has reviewed the documentation as recorded by the Scribe (Blaise Boone) Provider Attestation: All medical record entries made by the Scribe were at my direction and personally dictated by me. I have reviewed the chart and agree that the record accurately reflects my personal performance of the history, physical exam, medical decision making, and the department course for this patient. I have also personally directed, reviewed, and agree with the discharge instructions and disposition.
[2018-05-25 14:48] LABS: BASO # 0.1 K/uL (0.0-0.2); BASO % 0.6 % (0.0-2.0); EOS # 0.1 K/uL (0.0-0.7); EOS % 1.4 % (0.0-4.0); HEMOGLOBIN 14.1 g/dL (11.0-16.0); LYMPH # 2.8 K/uL (1.0-4.3); LYMPH % 27.1 % (20.0-40.0); MEAN CELL VOLUME 86.3 fL (81.0-99.0); MEAN CORPUSCULAR HEMOGLOBIN 28.2 pg (27.0-31.0); MEAN CORPUSCULAR HGB CONC 32.7 g/dL (33.0-37.0); MEAN PLATELET VOLUME 8.6 fL (7.2-11.7); MONO # 0.7 K/uL (0.0-0.8); MONO % 6.6 % (0.0-10.0); NEUT # 6.6 K/uL (1.8-7.0); NEUT % 64.3 % (50.0-75.0); RED CELL DISTRIBUTION WIDTH 13.4 % (11.5-14.5); WHITE BLOOD COUNT 10.3 K/uL (4.8-10.8)
[2018-05-25 14:59] LABS: ALB/GLOB RATIO 1.9 (1.0-2.1); ALBUMIN 4.7 g/dL (3.5-5.0); ALT/SGPT 15 U/L (9-52); AST/SGOT 32 U/L (14-36); BLOOD UREA NITROGEN 10 mg/dL (7-17); GFR NON-AFRICAN AMERICAN > 60
[2018-05-25 15:20] LABS: SQUAMOUS EPITHIAL 2 /hpf (0-5); URINE BACTERIA RARE (<OCC); URINE BILIRUBIN NEGATIVE (NEGATIVE); URINE BLOOD 1+ (NEGATIVE); URINE CLARITY Clear (Clear); URINE COLOR Yellow (YELLOW); URINE GLUCOSE (UA) NORMAL (Normal); URINE HYALINE CAST 0-2 /lpf (0-2); URINE LEUKOCYTE ESTERASE NEG Leu/uL (Negative); URINE PROTEIN NEGATIVE (NEGATIVE); URINE UROBILINOGEN NORMAL mg/dL (0.2-1.0)
[2018-05-25 16:23] VITALS: BP 110/79; PULSE 89; RESP 18; TEMP 98.9
== END 2018-05-25 16:24 | disposition home or self-care (01) ==
LOC: C.ER 14:00
DX: R00.2 Palpitations (principal)